=== PATIENT | female | born 1930 | race African-American/Black ===

== ENCOUNTER 2017-04-23 10:37 | Day surgery (SDC) | payer OTHER ==
[2017-04-22 08:46] VITALS: BP 141/86
[2017-04-22 09:18] LABS: HEMATOCRIT 40.4 % (34.6-47.8); HEMOGLOBIN 13.1 g/dL (11.7-16.4); WHITE BLOOD COUNT 7.4 x10^3/uL (3.4-10)
[2017-04-22 09:29] LABS: BLOOD UREA NITROGEN 10 mg/dL (7-18)
[~2017-04-23] VITALS: Ht 152.4 cm; Wt 68.1 kg
[~2017-04-23 10:37] MED LIST: ASPI-496 PO; MELA1TAB7 PO; METO25TA35 PO; MULT-658 PO
[2017-04-23] MEDS ORDERED: SODIUM CHLORIDE 0.9% 1,000 ML IV SCH (10:58)
[2017-04-23] MEDS ORDERED: CEFAZOLIN PMX 1GM/50ML 50 ML IVPB ONE (11:00)
[2017-04-23] MEDS ORDERED: MIDAZOLAM 1 MG/ML, 5ML ONE (11:54)
[2017-04-23] MEDS ORDERED: CEFAZOLIN 1,000 MG ONE (11:55)
[2017-04-23] MEDS ORDERED: FENTANYL PF 100 MCG/2ML ONE (11:55)
[2017-04-23] MEDS ORDERED: CEFAZOLIN PMX 1GM/50ML 50 ML ONE (11:55)
[2017-04-23] MEDS ORDERED: LIDOCAINE 2%, 20ML ONE (11:55)
[2017-04-23] MEDS ORDERED: DIPHENHYDRAMINE 50 MG/ML, 1ML ONE (12:11)
[2017-04-23] MEDS ORDERED: HYDROcodone/APAP 5/325 TABLET PO PRN (13:00)
[2017-04-23] MEDS ORDERED: SODIUM CHLORIDE FLUSH 10ML SYR IVF SCH (21:00)
[2017-04-24] MEDS ORDERED: METOPROLOL TARTRATE 25 MG TABLET PO SCH (09:00)
[2017-04-24] MEDS ORDERED: ASPIRIN 81 MG TABLET EC PO SCH (09:00)
[2017-04-24] MEDS ORDERED: MULTIVITAMIN 1 TABLET PO SCH (09:00)
== END 2017-04-23 15:20 ==
LOC: CACL 10:37
PROVIDERS: ATTEND Internal Medicine Cardiovascular Disease
DX: Z45.010 Encounter for checking and testing of cardiac pacemaker pulse generator [battery] (principal); I49.5 Sick sinus syndrome; Z79.82 Long term (current) use of aspirin; Z95.0 Presence of cardiac pacemaker
CPT/HCPCS: 33228; 36415; 71020; 80048; 85025; 85610; 99156; C1785; J0690; J1200; J3010; J3490; J2250

== ENCOUNTER 2020-08-23 12:58 | Outpatient (CLI) | payer MEDICARE ==
[~2020-08-23 12:58] MED LIST changes: +APIX5TAB PO; +AZIT250T PO
[2020-08-23] MEDS ORDERED: OMNIPAQUE 350 MG/ML, 100ML BOTTLE ONE (16:04)
== END 2020-08-23 23:59 | disposition home or self-care (01) ==
LOC: CFH 12:58
PROVIDERS: ATTEND Internal Medicine Cardiovascular Disease
DX: I77.810 Thoracic aortic ectasia (principal); I51.7 Cardiomegaly; I70.0 Atherosclerosis of aorta; R01.1 Cardiac murmur, unspecified; I26.99 Other pulmonary embolism without acute cor pulmonale; M85.88 Other specified disorders of bone density and structure, other site; M51.34 Other intervertebral disc degeneration, thoracic region
CPT/HCPCS: 71275; 82565; Q9967